=== PATIENT | female | born 1990 | race Two or more races ===

== ENCOUNTER 2023-10-29 14:18 | Outpatient (CLI) | payer OTHER | END 2023-10-29 14:19 | disposition home or self-care (01) | LOC: PRENATAL 14:18 | PROVIDERS: ATTEND Obstetrics & Gynecology Maternal & Fetal Medicine | DX: O35.9XX0 Maternal care for (suspected) fetal abnormality and damage, unspecified, not applicable or unspecified (principal); O35.3XX0 Maternal care for (suspected) damage to fetus from viral disease in mother, not applicable or unspecified; O44.02 Complete placenta previa NOS or without hemorrhage, second trimester; O10.912 Unspecified pre-existing hypertension complicating pregnancy, second trimester; Z3A.20 20 weeks gestation of pregnancy ==

== ENCOUNTER 2023-12-26 10:07 | Outpatient (CLI) | payer OTHER | END 2023-12-26 10:08 | disposition home or self-care (01) | LOC: PRENATAL 10:07 | PROVIDERS: ATTEND Obstetrics & Gynecology Maternal & Fetal Medicine | DX: O26.849 Uterine size-date discrepancy, unspecified trimester (principal); O44.00 Complete placenta previa NOS or without hemorrhage, unspecified trimester; O10.019 Pre-existing essential hypertension complicating pregnancy, unspecified trimester; O36.1999 Maternal care for other isoimmunization, unspecified trimester, other fetus; Z3A.28 28 weeks gestation of pregnancy ==

== ENCOUNTER → 2024-01-21 | Outpatient (CLI) | payer OTHER | END | disposition home or self-care (01) | LOC: PRENATAL 13:25 | PROVIDERS: ATTEND Obstetrics & Gynecology Maternal & Fetal Medicine | DX: O26.849 Uterine size-date discrepancy, unspecified trimester (principal); O36.8199 Decreased fetal movements, unspecified trimester, other fetus; O44.00 Complete placenta previa NOS or without hemorrhage, unspecified trimester; O10.019 Pre-existing essential hypertension complicating pregnancy, unspecified trimester; Z3A.32 32 weeks gestation of pregnancy ==

== ENCOUNTER 2024-02-18 14:03 | Outpatient (CLI) | payer OTHER | END 2024-02-18 14:04 | disposition home or self-care (01) | LOC: PRENATAL 14:03 | PROVIDERS: ATTEND Obstetrics & Gynecology Maternal & Fetal Medicine | DX: O26.849 Uterine size-date discrepancy, unspecified trimester (principal); O36.8199 Decreased fetal movements, unspecified trimester, other fetus; O10.019 Pre-existing essential hypertension complicating pregnancy, unspecified trimester; Z3A.36 36 weeks gestation of pregnancy ==

== ENCOUNTER 2024-03-05 13:30 | Inpatient (IN) | payer OTHER ==
[~2024-03-05] VITALS: Ht 154.9 cm; Wt 80.7 kg
[2024-03-10] MEDS ORDERED: OXYTOCIN 500 ML IV SCH (08:15)
[2024-03-10 09:21] VITALS: BP 135/92
[2024-03-10] MEDS ORDERED: LABETALOL HCL 100 MG TABLET PO SCH (09:44)
[2024-03-10] MEDS ORDERED: RINGERS SOLUTION,LACTATED 1,000 ML IV SCH (10:30)
[2024-03-10 11:47] VITALS: BP 133/91
[2024-03-10 11:53] LABS: HEMOGLOBIN 13.3 g/dL (12.0-15.00); MEAN CELL VOLUME 84.6 fL (80.00-100.00); MEAN CORPUSCULAR HEMOGLOBIN 29.5 pg (27.00-32.0); MEAN CORPUSCULAR HGB CONC 34.8 g/dl (32.0-36.0); PLATELET COUNT 165 K/uL (150-450); RED BLOOD COUNT 4.49 M/uL (4.00-6.00); RED CELL DISTRIBUTION WIDTH 14.4 % (11.5-14.5)
[2024-03-10] MEDS ORDERED: MEPERIDINE HCL/PF 25 MG/ML VIAL IV ONE (13:30)
[2024-03-10] MEDS ORDERED: PROMETHAZINE HCL 25 MG/ML AMPUL IV ONE (13:30)
[2024-03-10 15:51] VITALS: BP 129/81
[2024-03-10 18:40] VITALS: BP 138/83
[2024-03-10] MEDS ORDERED: CHLORHEXIDINE GLUCONATE 120 ML BOTTLE TP SCH (22:45)
[2024-03-10] MEDS ORDERED: AMPICILLIN SODIUM 2,000 MG VIAL IV ONE (22:45)
[2024-03-10] MEDS ORDERED: OXYTOCIN 1,000 ML IV SCH (22:45)
[2024-03-10] MEDS ORDERED: FF) RHO(D) IMMUNE GLOBULIN (POM) IM SCH (22:45)
[2024-03-10] MEDS ORDERED: IBUprofen 400 MG TABLET PO PRN (22:45)
[2024-03-10] MEDS ORDERED: ERYTHROMYCIN BASE OPHT 1GM EACH TUBE OP ONE (23:30)
[2024-03-10] MEDS ORDERED: LIDOCAINE HCL 1% 10ML VIAL IJ ONE (23:30)
[2024-03-11 00:13] VITALS: BP 132/63
[2024-03-11 03:00] VITALS: BP 119/76
[2024-03-11 06:57] LABS: HEMATOCRIT 32.9 % (36.0-45.00); HEMOGLOBIN 11.5 g/dL (12.0-15.00); MEAN CORPUSCULAR HEMOGLOBIN 29.4 pg (27.00-32.0); MEAN CORPUSCULAR HGB CONC 34.9 g/dl (32.0-36.0); PLATELET COUNT 147 K/uL (150-450); RED BLOOD COUNT 3.92 M/uL (4.00-6.00); RED CELL DISTRIBUTION WIDTH 14.7 % (11.5-14.5)
[2024-03-11] MEDS ORDERED: PNV,CALCIUM 72/IRON/FOLIC ACID 1 TAB TABLET PO SCH (09:00)
[2024-03-11 12:11] VITALS: BP 129/73
[2024-03-11 16:00] VITALS: BP 119/80
[2024-03-11] MEDS ORDERED: LABETALOL HCL 100 MG TABLET PO PRN (17:00)
[2024-03-12 01:13] VITALS: BP 111/72
[2024-03-12 09:00] VITALS: BP 123/84
[2024-03-12 13:37] VITALS: BP 127/85
[2024-03-12 16:00] VITALS: BP 129/80
[2024-03-12] MEDS ORDERED: PROTONIX20 MG PO (16:23)
== END 2024-03-12 16:58 | disposition home or self-care (01) | DRG 807 ==
LOC: LDR 03-10 06:20 → OB/GYN 03-11 02:28
PROVIDERS: Obstetrics & Gynecology; ADMIT Student in an Organized Health Care Education/Training Program; ATTEND Student in an Organized Health Care Education/Training Program
PROC: 10E0XZZ Delivery of Products of Conception, External Approach (ICD-10-PCS; principal; 2024-03-10)
PROC: 0KQM0ZZ Repair Perineum Muscle, Open Approach (ICD-10-PCS; 2024-03-10)
PROC: 3E033VJ Introduction of Other Hormone into Peripheral Vein, Percutaneous Approach (ICD-10-PCS; 2024-03-10)
PROC: 0W8NXZZ Division of Female Perineum, External Approach (ICD-10-PCS; 2024-03-10)
PROC: 4A1HXCZ Monitoring of Products of Conception, Cardiac Rate, External Approach (ICD-10-PCS; 2024-03-10)
DX: O70.1 Second degree perineal laceration during delivery (principal); Z37.0 Single live birth; Z3A.39 39 weeks gestation of pregnancy; Z20.822 Contact with and (suspected) exposure to COVID-19